=== PATIENT | male | born 1990 | race Caucasian/White ===

== ENCOUNTER 2020-04-13 00:14 | Emergency (ER) | payer OTHER ==
[~2020-04-13] VITALS: Ht 185.4 cm; Wt 77.1 kg
== END 2020-04-13 02:05 | disposition home or self-care (01) ==
LOC: ER 00:14
DX: S00.83XA Contusion of other part of head, initial encounter (principal); S20.219A Contusion of unspecified front wall of thorax, initial encounter; Y04.2XXA Assault by strike against or bumped into by another person, initial encounter; Y92.830 Public park as the place of occurrence of the external cause
CPT/HCPCS: 70450; 70486; 71046; 99284-25; A9270

== ENCOUNTER 2020-04-17 12:24 | Emergency (ER) | payer OTHER ==
[~2020-04-17] VITALS: Ht 185.4 cm; Wt 88.5 kg
[2020-04-17] MEDS ORDERED: IBUP600 PO (14:14)
== END 2020-04-17 14:14 | disposition home or self-care (01) ==
LOC: ER 12:24
DX: S60.221A Contusion of right hand, initial encounter (principal); F17.210 Nicotine dependence, cigarettes, uncomplicated; Z23 Encounter for immunization; W22.01XA Walked into wall, initial encounter
CPT/HCPCS: 73130; 90471; 90714; 99283-25

== ENCOUNTER 2020-12-20 12:37 | Emergency (ER) | payer OTHER ==
[~2020-12-20] VITALS: Ht 185.4 cm; Wt 83.9 kg
[~2020-12-20 12:37] MED LIST: IBUP600 PO
[2020-12-20] MEDS ORDERED: Prednisone10 MG (12:50)
[2020-12-20] MEDS ORDERED: CYCL10 PO (12:50)
== END 2020-12-20 14:14 | disposition home or self-care (01) ==
LOC: ER 12:37
DX: M25.512 Pain in left shoulder (principal); F17.210 Nicotine dependence, cigarettes, uncomplicated; Z79.899 Other long term (current) drug therapy
CPT/HCPCS: 73030; 99283-25